=== PATIENT | male | born 1945 | race Caucasian/White ===

== ENCOUNTER → 2019-04-11 | Outpatient (CLI) | payer MEDICARE, BC | LOC: COL.RAD 04-10 08:30 | DX: Z01.812 Encounter for preprocedural laboratory examination (principal); I71.9 Aortic aneurysm of unspecified site, without rupture; N28.1 Cyst of kidney, acquired; K44.9 Diaphragmatic hernia without obstruction or gangrene | CPT/HCPCS: Q9967 ==

== ENCOUNTER 2019-10-25 22:45 | Emergency (ER) | payer MEDICARE, BC ==
[~2019-10-25] VITALS: Ht 190.5 cm; Wt 125.0 kg
[2019-10-25 22:47] VITALS: TEMP 97.9
[2019-10-25] MEDS ORDERED: ELIQUIS 5MG PO (23:26)
[2019-10-25] MEDS ORDERED: COREG12.5 MG PO (23:27)
[2019-10-25] MEDS ORDERED: PLENDIL 5MG TAB5 MG PO (23:27)
[2019-10-25] MEDS ORDERED: PRIL40 PO (23:28)
[2019-10-25] MEDS ORDERED: LIPITOR 40MG TA40 MG PO (23:28)
[2019-10-25] MEDS ORDERED: ZESTRIL30 MG PO (23:31)
[2019-10-25 23:32] LABS: BASO % 0.4 % (0.0-2.0); EOS # 0.1 (0.0-0.7); EOS % 1.1 % (0-4.0); GRAN # 7.5 (1.4-6.5); GRAN % 65.6 % (42.2-75.2); HEMATOCRIT 45.6 % (42.0-52.0); LYMPH # 2.3 (1.2-3.4); MEAN CELL VOLUME 94 fl (80.0-100.0); MEAN CORPUSCULAR HEMOGLOBIN 31 pg (27.0-31.0); MEAN CORPUSCULAR HGB CONC 33 g/dl (33.0-37.0); MEAN PLATELET VOLUME 11.6 fl (7.4-10.4); MONO # 1.4 (0.1-0.6); MONO % 12.5 % (1.7-9.3); PLATELET COUNT 202 K/mm3 (130-400); RED BLOOD COUNT 4.84 M/mm3 (4.20-5.60); REDCELL DISTRIBUTION WIDTH-CV 14.2 % (11.5-14.5)
[2019-10-25 23:36] LABS: INR 1.1 (0.8-3.0); PROTHROMBIN TIME 12.6 SECONDS (9.7-12.8)
[2019-10-25 23:39] LABS: PARTIAL THROMBOPLASTIN TIME 27.2 SECONDS (26.0-37.0)
[2019-10-25 23:43] LABS: ALANINE AMINOTRANSFERASE 24 U/L (4-49); ALBUMIN 4.4 gm/dL (3.5-5.0); ALKALINE PHOSPHATASE 140 U/L (50-136); ANION GAP 9 mmol/L (7-16); AST,SGOT 30 U/L (15-37); BILIRUBIN,TOTAL 0.8 mg/dL (0.0-1.0); BLOOD UREA NITROGEN 24 mg/dL (9-20); CALCIUM 9.9 mg/dL (8.4-10.2); CARBON DIOXIDE 24 mmol/L (22-30); CHLORIDE 105 mmol/L (98-107); CREATININE, serum 1.78 (0.66-1.25); GLUCOSE 152 mg/dL (74-106); POTASSIUM 4.2 mmol/L (3.4-5.0); SODIUM 137 mmol/L (137-145); TOTAL PROTEIN 7.5 gm/dL (6.4-8.2)
[2019-10-26 00:44] LABS: MAGNESIUM 1.8 mg/dL (1.6-2.3)
[2019-10-26 01:01] LABS: TROPONIN-I < 0.012 ng/mL (0.000-0.035)
[2019-10-26 02:20] VITALS: BP 104/42; PULSE 52
--- NOTE | 2019-10-26 02:45 | NUR ---
CALLED BY [employer] E[employer]RICIAN AT [phone] TO ASSIST WITH INTUBATION IN ER. ARRIVED AND USED A 7.5 ETT THAT IS 24@LIP, BILATERAL BREATH SOUNDS WERE HEARD AND YELLOW COLOR WAS SEEN FOR END TIDAL. SPO2 READ 96%. THEN PROCEEDED TO BAG PATIENT EMT PREPARED TO TRAVEL WITH HIM. PT THEN HAD EPISODES OF DESATURATION, BUT MIGHT BE DUE TO POOR PERFUSION OF THE FINGERS. SUCTIONED PT AND HAD LITTLE COME THROUGH WITH THE SUCTION. STILL BILATERAL BREATH SOUNDS WERE HEARD. PT SPO2 CAME BACK UP AND STAYED 90-100% FOR THE REST OF THE TIME. ASSISTED EMT WITH VENT SETTINGS FOR PATIENT, EMT THEN BAGGED PATIENT OUT FOR TRANSPORT.
== END 2019-10-26 02:35 | disposition short-term general hospital (02) ==
LOC: COL.ER 22:45
PROVIDERS: Emergency Medicine
DX: I44.2 Atrioventricular block, complete (principal); I10 Essential (primary) hypertension; Z79.01 Long term (current) use of anticoagulants
CPT/HCPCS: J0330; J0461; J1265; J1610; J2250; J2704; J3010; J3475; J7030; J7060

== ENCOUNTER → 2020-08-28 | Outpatient (CLI) | payer MEDICARE, BC ==
[~2020-08-28] MED LIST: COREG12.5 MG PO; ELIQUIS 5MG PO; LIPITOR 40MG TA40 MG PO; PLENDIL 5MG TAB5 MG PO; PRIL40 PO; ZESTRIL30 MG PO
== END ==
LOC: COL.RAD 10:24
DX: Z01.812 Encounter for preprocedural laboratory examination (principal); I71.9 Aortic aneurysm of unspecified site, without rupture; K44.9 Diaphragmatic hernia without obstruction or gangrene; Q61.3 Polycystic kidney, unspecified
CPT/HCPCS: Q9967

== ENCOUNTER 2021-04-16 13:00 | Day surgery (SDC) | payer MEDICARE, BC ==
[~2021-04-16] VITALS: Ht 193 cm; Wt 116.5 kg
[2021-04-16] MEDS ORDERED: COZAAR 25MG25 MG/TAB PO (13:45)
[2021-04-16] MEDS ORDERED: GLUCOPHAGE500 MG/TAB PO (13:46)
[2021-04-16] MEDS ORDERED: PLENDIL 5MG TAB5 MG PO (13:46)
[2021-04-16] MEDS ORDERED: COREG 25MG25 MG/TAB PO (13:47)
[2021-04-16 16:40] VITALS: BP 131/73; PULSE 63; TEMP 97.7
--- NOTE | 2021-04-16 16:40 | NUR ---
Patient arrived on cart from PACU, escorted by NILE Carvajal. Patient is alert and oriented x3. Vitals obtained before getting the patient up to void. Patient was able to successfully ambulate to bathroom with minimal assistance. Void was productive, however there were a few clots noted and he was bleeding initally. The bleeding did slow, and then stop. Patient was assisted back to bed and encouraged to drink water and rest. IV was continued at this time to promote hydration. Call edmonds is at bedside. is present.
[2021-04-16 16:55] VITALS: BP 139/78; PULSE 60
--- NOTE | 2021-04-16 16:55 | NUR ---
Vitals obtained. Patient has had a full cup of water. Bleeding has almost stopped. Will continue to monitor per intervals.
[2021-04-16 17:10] VITALS: BP 131/73; PULSE 89
--- NOTE | 2021-04-16 17:10 | NUR ---
Vitals obtained. Patient was assisted to bathroom to void again due to the urge to go. Patient voided and the color was clear yellow, and then a few drops of blood came out. RN educated the patient as to why this happends and encouraged the patient to rest and hydrate. Patient was assisted back to bed. Call edmonds is within reach.
[2021-04-16 17:25] VITALS: BP 126/59; PULSE 73
--- NOTE | 2021-04-16 17:25 | NUR ---
Patient ate a chocolate chip muffin and denies neasea. IV was discontined at this time due to impending discharge. Catheter tip intact. Pressure dressing applied. His gathered her belongings and the patients belongings and left to get her car from the patient entrence to meet us at the ED. Patient is currently changing into his personal clothes.
--- NOTE | 2021-04-16 17:30 | NUR ---
Discharge instructions and educational material reviewed at this time. Patient veralized understanding and signed the realted paperwork. Patient was escorted out to the ED via wheelchair. Urinal provided. Patient denied further questiosn or concerns. Patient was transferred into the care of his , who is present to drive. His has the discharge instructions.
[2021-04-16 18:05] VITALS: BP 114/74; PULSE 66; TEMP 97.6
== END 2021-04-16 17:40 | disposition home or self-care (01) ==
LOC: SDCO 13:00
DX: N20.1 Calculus of ureter (principal); I10 Essential (primary) hypertension; I48.92 Unspecified atrial flutter; E78.5 Hyperlipidemia, unspecified; J45.909 Unspecified asthma, uncomplicated; G47.33 Obstructive sleep apnea (adult) (pediatric); K21.9 Gastro-esophageal reflux disease without esophagitis; M19.90 Unspecified osteoarthritis, unspecified site; E11.9 Type 2 diabetes mellitus without complications; Z79.84 Long term (current) use of oral hypoglycemic drugs; Z79.01 Long term (current) use of anticoagulants; Z99.89 Dependence on other enabling machines and devices; Z79.899 Other long term (current) drug therapy
CPT/HCPCS: C1769; J0690; J1940; J2370; J2405; J2704; J3010; J7030; Q9967

== ENCOUNTER → 2021-09-15 | Outpatient (CLI) | payer MEDICARE, BC ==
[~2021-09-15] MED LIST changes: +COREG 25MG25 MG/TAB PO; +COZAAR 25MG25 MG/TAB PO; +GLUCOPHAGE500 MG/TAB PO
== END ==
LOC: COL.RAD 09-12 07:30
DX: I48.0 Paroxysmal atrial fibrillation (principal); I77.819 Aortic ectasia, unspecified site
CPT/HCPCS: Q9967